=== PATIENT | female | born 1990 | race Caucasian/White ===

== ENCOUNTER → 2016-10-11 | Outpatient (CLI) | payer OTHER ==
[~2016-10-11] MED LIST: ANUS2.5C2 TOP; COLA100C PO; MILKSUS PO; MOTR200T44 PO; TYLE167L PO
[2016-10-11 14:58] LABS: BASO # 0.2 K/mm3 (0.0-0.2); BASO % 1.8 % (0.0-1.0); EOS # 0.1 K/mm3 (0.0-0.50); EOS % 0.6 % (0.0-3.0); LARGE UNSTAINED CELL # 0.1 K/mm3 (0.0-0.4); LARGE UNSTAINED CELL % 1.1 % (0.0-4.0); LYMPH # 2.2 K/mm3 (1.5-6.5); LYMPH % 19.7 % (24.0-44.0); MEAN CORPUSCULAR HEMOGLOBIN 29.4 pg (27.0-33.0); MEAN CORPUSCULAR VOLUME 86.4 fl (80.0-96.0); MONO # 0.5 K/mm3 (0.0-0.8); MONO % 4.6 % (0.0-5.0); NEUTROPHILS # 7.5 K/mm3 (1.8-7.7); NEUTROPHILS % 72.2 % (36.0-66.0); PLATELET COUNT, AUTOMATED 267 k/mm3 (150-450); RED CELL DISTRIBUTION WIDTH 13.1 % (11.5-14.5); WHITE BLOOD COUNT 10.4 K/mm3 (4.0-10.0)
[2016-10-11 16:59] LABS: HIV SCRN NEGATIVE (NEGATIVE); HIV SCRN1 NEGATIVE (NEGATIVE)
[2016-10-11 17:00] LABS: CONTROL LINE INT CTR LINE PRESENT
[2016-10-13 10:18] LABS: HBsAg Prenatal NEGATIVE (NEGATIVE)
== END ==
LOC: M LAB 12:38
PROVIDERS: ATTEND Advanced Practice Midwife
DX: Z34.81 Encounter for supervision of other normal pregnancy, first trimester (principal)

== ENCOUNTER → 2016-10-20 | Outpatient (REF) | payer OTHER | LOC: M LAB REF 17:08 | PROVIDERS: ATTEND Advanced Practice Midwife | DX: Z34.81 Encounter for supervision of other normal pregnancy, first trimester (principal); Z36 Encounter for antenatal screening of mother ==

== ENCOUNTER → 2016-11-17 | Outpatient (REF) | payer OTHER | LOC: M LAB REF 12:49 | PROVIDERS: ATTEND Advanced Practice Midwife | DX: Z34.82 Encounter for supervision of other normal pregnancy, second trimester (principal); Z36 Encounter for antenatal screening of mother ==

== ENCOUNTER → 2016-12-13 | Outpatient (CLI) | payer OTHER ==
--- NOTE | 2016-12-13 09:25 | REP ---
Clinical: Anatomical evaluation. Comparison: None . Findings: Examination demonstrates a single live intrauterine in cephalic presentation. motion is identified by technologist. Placenta is noted anterior and right lateral and grade zero without evidence for placenta previa or abruption. Amniotic fluid volume is normal. Cervix measures 4.1 cm in length and appears closed. No evidence for nuchal cord. Gestational age by LMP 19 weeks 4 days with REINALDO 05/05/2017 . Gestational age by current measurements 19 weeks 1 day with REINALDO 05/08/2017 . FHR equals 144 beats per minute. BPD 4.7 cm 20 weeks 2 days HC 16.6 cm 19 weeks 2 days AC 13.5 cm 19 weeks 0 days FL 3.2 cm 20 weeks 0 days HL 2.9 cm 19 weeks 3 days HC/AC ratio 1.23 Estimated weight 295 grams ( 42nd percentile). Anatomical assessment demonstrates normal structures including cranium, choroid plexus, cavum, cerebellum/posterior fossa, facial features, lungs, four-chamber heart/ventricular outflow tracts, diaphragm, stomach, cord insertion/three-vessel cord, kidneys/bladder, spine, and extremities. Impression: Single live intrauterine in cephalic presentation demonstrating appropriate interval growth. Anatomical assessment is complete and normal. Signed by Serge Zarco MD 12/13/2016 09:15 A
== END ==
LOC: M RAD 08:07
PROVIDERS: ATTEND Advanced Practice Midwife
DX: Z36 Encounter for antenatal screening of mother (principal); Z3A.19 19 weeks gestation of pregnancy

== ENCOUNTER → 2017-02-05 | Outpatient (CLI) | payer OTHER ==
[~2017-02-05] MED LIST changes: -COLA100C PO; +COLA100C3 PO
[2017-02-05 12:02] LABS: MEAN CORPUSCULAR HEMOGLOBIN 30.4 pg (27.0-33.0); MEAN CORPUSCULAR HGB CONC 34.5 g/dl (32.0-36.5); MEAN CORPUSCULAR VOLUME 88.3 fl (80.0-96.0); WHITE BLOOD COUNT 10.7 K/mm3 (4.0-10.0)
== END ==
LOC: M LAB 09:40
PROVIDERS: ATTEND Advanced Practice Midwife
DX: Z34.82 Encounter for supervision of other normal pregnancy, second trimester (principal); Z36 Encounter for antenatal screening of mother

== ENCOUNTER → 2017-04-25 | Outpatient (REF) | payer OTHER ==
[~2017-04-25] MED LIST changes: +ACET50TA PO; -COLA100C3 PO; +COLA100C5 PO; +IBUP-1114 PO; +PRENTAB9 PO
== END ==
LOC: M LAB REF 17:12
PROVIDERS: ATTEND Advanced Practice Midwife
DX: Z34.83 Encounter for supervision of other normal pregnancy, third trimester (principal); Z36 Encounter for antenatal screening of mother

== ENCOUNTER 2017-04-28 17:15 | Outpatient (CLI) | payer OTHER ==
[~2017-04-28] VITALS: Ht 162.6 cm; Wt 87.0 kg
[~2017-04-28 17:15] MED LIST changes: -ACET50TA PO; -IBUP-1114 PO; -PRENTAB9 PO
[2017-04-28] MEDS ORDERED: PRENTAB9 PO (17:25)
[2017-04-28 17:30] VITALS: BP 113/74
== END 2017-04-28 18:15 | disposition home or self-care (01) ==
LOC: M LDO 17:15
PROVIDERS: ATTEND Specialist
DX: O36.8130 Decreased fetal movements, third trimester, not applicable or unspecified (principal); Z3A.38 38 weeks gestation of pregnancy; O47.1 False labor at or after 37 completed weeks of gestation

== ENCOUNTER 2017-05-14 10:35 | Inpatient (IN) | payer OTHER ==
[~2017-05-14] VITALS: Ht 165.1 cm; Wt 85.0 kg
[2017-05-14] VITALS (23 sets, daily range): BP systolic 102–137; BP diastolic 57–89
[~2017-05-14 10:35] MED LIST changes: +PRENTAB9 PO
[2017-05-14] MEDS ORDERED: LR 1,000 ML IV SCH (10:59)
[2017-05-14] MEDS ORDERED: LACTATED RINGER'S 1000 ML IV STA (10:59)
[2017-05-14 11:47] LABS: MEAN CORPUSCULAR HEMOGLOBIN 28.1 pg (27.0-33.0); MEAN CORPUSCULAR HGB CONC 34.3 g/dl (32.0-36.5); MEAN CORPUSCULAR VOLUME 82.1 fl (80.0-96.0); RED CELL DISTRIBUTION WIDTH 13.5 % (11.5-14.5); WHITE BLOOD COUNT 10.4 K/mm3 (4.0-10.0)
[2017-05-14] MEDS ORDERED: FENTANYL 2MCG/ML ROPIVACAINE 0.2% IN 0.9% NACL 200ML IVBAG As Ordered ONE (12:24)
[2017-05-14] MEDS ORDERED: LACTATED RINGER'S 1000 ML IV PRN (13:00)
[2017-05-14] MEDS ORDERED: EPIDURAL/PCA KEYS XX PRN (13:00)
[2017-05-14] MEDS ORDERED: REFRIGERATOR IV KEYS XX PRN (13:00)
[2017-05-14] MEDS ORDERED: ONDANSETRON 4MG/2ML VIAL (J2405) IV PRN (13:00)
[2017-05-14] MEDS ORDERED: EPIDURAL COMMENT XX SCH (13:00)
[2017-05-14] MEDS ORDERED: ePHEDrine SULFATE 25 MG/5 ML(5MG/ML) SYRINGE IV PRN (13:00)
[2017-05-14] MEDS ORDERED: diphenhydrAMINE INJ 50MG/ML VIAL (J1200) IV PRN (13:00)
[2017-05-14] MEDS ORDERED: FENTANYL/ROPIVACAINE/NACL BAG 200 ML EPIDURAL SCH (13:00)
[2017-05-14] MEDS ORDERED: NALOXONE INJ 0.4 MG/1 ML VIAL (J2310) IV PRN (13:00)
[2017-05-14] MEDS ORDERED: OXYTOCIN 30 UNITS IN 0.9% NaCl 500ML IV BAG (J2590) As Ordered ONE (13:22)
[2017-05-14] MEDS ORDERED: OXYTOCIN DRIP 30 UNITS in APPROPRIATE DILUENT 1 EA IV ONE (16:00)
[2017-05-14] MEDS ORDERED: IBUPROFEN 800 MG TAB PO PRN (16:00)
[2017-05-14] MEDS ORDERED: RHOGAM 300 MCG (1500 IU) INJ (J2790) IM SCH (16:00)
[2017-05-14] MEDS ORDERED: DIBUCAINE 1% OINTMENT 30GM TOP PRN (16:00)
[2017-05-14] MEDS ORDERED: DOCUSATE SODIUM 100 MG CAP PO PRN (16:00)
[2017-05-14] MEDS ORDERED: METHYLERGONOVINE MALEATE 0.2 MG TAB PO PRN (16:00)
[2017-05-14] MEDS ORDERED: MEASLES,MUMPS,RUBELLA VACCINE INJ (MMR-II) (90707) SC SCH (16:00)
--- NOTE | 2017-05-14 17:00 | HPE ---
DATE OF ADMISSION: 05/14/2017 A 26-year-old G2, P1 female at 40-3/7 weeks gestation by last menstrual period (LMP) consistent with an 11-week ultrasound, estimated date of confinement (EDC) of 05/11/2017, presents with regular contractions every 3-4 minutes for the last several hours. She denies vaginal bleeding. Appears good movement. COURSE: Patient initiated care at 11 weeks gestation on 10/20/2016. Her first-trimester blood pressure is 124/74. She had no complications. OBSTETRICAL HISTORY: March 2014, 39-week vaginal delivery, 7-pound 8-ounce male with no complications. MEDICAL HISTORY: Noncontributory. SURGICAL HISTORY: None. ALLERGIES: None. SOCIAL HISTORY: The patient is . Patient denies cigarettes, alcohol, or drug use. FAMILY HISTORY: Noncontributory. PHYSICAL EXAMINATION: Blood pressure is 118/68, pulse 84. She appears uncomfortable. Head and neck exam is normal. Lungs clear. Heart regular rate and rhythm. Abdomen nontender, gravid. heart tone category 1. Sterile vaginal exam: 4 cm, 100% effaced, -2 station, bulbing membranes, vertex. Contractions every 2-3 minutes. Extremities: Nontender. LABORATORY DATA: Blood type is O positive, rubella equivocal, RPR nonreactive. Hepatitis B and C negative. GBS negative on 04/25/2017. ASSESSMENT: A 26-year-old G2, P1 female at 40-3/7 weeks gestation presents in active labor. Patient was admitted on 05/14/2017.
[2017-05-14] MEDS: ACETAMINOPHEN 500 MG TAB PO PRN (21:45)
[2017-05-15] MEDS: ACETAMINOPHEN 500 MG TAB PO PRN ×3 (05:17→19:56)
[2017-05-15 05:58] VITALS: BP 123/72
[2017-05-15] MEDS: PRENATAL VITAMINS CHEWABLE TABLET PO SCH (08:36)
[2017-05-15 18:00] VITALS: BP 111/59
[2017-05-16] MEDS: ACETAMINOPHEN 500 MG TAB PO PRN (03:23)
[2017-05-16 06:20] VITALS: BP 102/66
[2017-05-16] MEDS: PRENATAL VITAMINS CHEWABLE TABLET PO SCH (07:34)
[2017-05-16] MEDS ORDERED: ACET50TA PO (11:06)
[2017-05-16] MEDS ORDERED: IBUP-1114 PO (11:06)
--- NOTE | 2017-05-16 16:43 | DN ---
DATE OF DELIVERY: 05/14/2017 PREDELIVERY DIAGNOSIS: 40 weeks in labor. POSTDELIVERY DIAGNOSIS: Delivered. PROCEDURE: Spontaneous vaginal delivery. BESSEMER BOTTOM MAKER: Dr. Vic Mckeon ANESTHESIA: Epidural. ESTIMATED BLOOD LOSS: 300 mL. FINDINGS: 8 pound 1 ounce male . scores 8 and 9. DELIVERY SUMMARY: After a short second stage, the patient had spontaneous delivery of an 8 pound 1 ounce male infant, scores 8 and 9 under epidural anesthesia. Loose nuchal cord times one reduced manually. The shoulders delivered spontaneously with ease. The cried spontaneously and was handed to the mother. The cord was doubly clamped and cut. The placenta was delivered with manual extraction due to partial adherence. The placenta appeared to be intact. The patient received IV Pitocin for delivery of the placenta. A small first degree perineal laceration was repaired with 2-0 chromic in the usual fashion. Needle counts are correct. There were no sponges to count. DATE:
== END 2017-05-16 15:00 | disposition home or self-care (01) | DRG 541 ==
LOC: M LDI 10:35 → M OBS 18:30
PROVIDERS: ADMIT Specialist; ATTEND Specialist
PROC: 10E0XZZ Delivery of Products of Conception, External Approach (ICD-10-PCS; principal; 2017-05-14)
PROC: 10D17ZZ Extraction of Products of Conception, Retained, Via Natural or Artificial Opening (ICD-10-PCS; 2017-05-14)
PROC: 0HQ9XZZ Repair Perineum Skin, External Approach (ICD-10-PCS; 2017-05-14)
DX: O48.0 Post-term pregnancy (principal); O69.82X0 Labor and delivery complicated by other cord entanglement, without compression, not applicable or unspecified; Z37.0 Single live birth; Z3A.40 40 weeks gestation of pregnancy; O70.0 First degree perineal laceration during delivery; O73.0 Retained placenta without hemorrhage

== ENCOUNTER → 2020-09-04 | Outpatient (REF) | payer OTHER ==
[~2020-09-04] MED LIST changes: +IBUP-1114 PO; +MAPA500T2 PO; +MILK120011 PO; -MILKSUS PO
== END ==
LOC: M SFHCWAGY 17:11
PROVIDERS: ATTEND Advanced Practice Midwife
DX: Z12.4 Encounter for screening for malignant neoplasm of cervix (principal)
CPT/HCPCS: 87624; G0123

== ENCOUNTER 2021-04-23 14:35 | Emergency (ER) | payer OTHER ==
[~2021-04-23] VITALS: Ht 165.1 cm; Wt 99.6 kg
[2021-04-23 15:58] LABS: BASO % 0.4 % (0.0-1.0); EOS # 0.1 10^3/uL (0.0-0.5); EOS % 0.8 % (0.0-3.0); HEMATOCRIT 41.9 % (36.0-47.0); HEMOGLOBIN 14.2 g/dl (12.0-15.5); LYMPH # 2.4 10^3/uL (1.5-5.0); LYMPH % 22.9 % (24.0-44.0); MEAN CORPUSCULAR HEMOGLOBIN 30.7 pg (27.0-33.0); MEAN CORPUSCULAR HGB CONC 33.9 g/dl (32.0-36.5); MEAN CORPUSCULAR VOLUME 90.5 fl (80.0-96.0); MONO % 9.8 % (2.0-8.0); NEUTROPHILS % 65.3 % (36.0-66.0); PLATELET COUNT, AUTOMATED 257 10^3/uL (150-450); RED BLOOD COUNT 4.63 10^6/uL (4.00-5.40); WHITE BLOOD COUNT 10.6 10^3/uL (4.0-10.0)
[2021-04-23] MEDS ORDERED: ISOVUE-370 76% 100ML VIAL As Ordered ONE (16:06)
--- NOTE | 2021-04-23 16:25 | REP ---
INDICATION: wait for bun/cr/hcg -left sided chest pain. COMPARISON: None. TECHNIQUE: Contrast dose: 75 ML of Isovue [address] technique: Helical scanning is acquired and overlapping 1.5 mm and contiguous 3 mm axial images are reformatted. In addition, maximum intensity projection and multiplanar re-formation images are generated in sagittal and coronal imaging projections. FINDINGS: There is good opacification in the pulmonary arterial tree. There is no evidence of vessel cut off or filling defect to suggest pulmonary embolus. Homogeneous opacity is seen in the thoracic aorta. There is no evidence of aneurysm or dissection. There is no evidence of pleural or pericardial effusion. No hilar or mediastinal mass or adenopathy is seen. Lung window settings demonstrate clear well inflated lungs. No pulmonary nodule, mass, infiltrate, or atelectasis. In the upper abdomen, normal adrenal glands are seen. There is an accessory splenule in the left upper quadrant. The visualized upper abdominal structures are otherwise unremarkable. Bone window settings show no bony destructive lesion. IMPRESSION: No CT evidence of pulmonary embolus. No active disease. <Electronically signed by Luis Weldon > 04/23/21 [id number]
[2021-04-23 17:50] VITALS: BP 149/76
--- NOTE | 2021-04-24 04:27 | ECGEPIP ---
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
--- NOTE | 2021-04-24 08:33 | REP ---
INDICATION: wait for ed poc hcg. COMPARISON: None. FINDINGS: The superior mediastinal structures are midline. The cardiac silhouette is unremarkable in size, shape, and position. The diaphragmatic surfaces of the lungs are regular, and the costophrenic angles are clear. The pulmonary chou are clear. The imaged osseous structures are intact. IMPRESSION: There is no acute cardiopulmonary disease. <Electronically signed by Lex Mcdonough > 04/24/21 [id number]
== END 2021-04-23 17:51 | disposition home or self-care (01) ==
LOC: M ED 14:35
DX: R07.9 Chest pain, unspecified (principal); R53.83 Other fatigue; Z79.899 Other long term (current) drug therapy
CPT/HCPCS: 36415; 71046; 71275; 80047; 84484; 84702; 85025; 93005; 99284; Q9967

== ENCOUNTER → 2021-09-04 | Outpatient (CLI) | payer OTHER | LOC: M ADAMS 11:30 | PROVIDERS: ATTEND Family Medicine | DX: R07.89 Other chest pain (principal) ==

== ENCOUNTER → 2021-09-04 | Outpatient (REF) | payer OTHER ==
[2021-09-04 13:32] LABS: BASO # 0.1 10^3/uL (0.0-0.2); BASO % 0.6 % (0.0-1.0); EOS # 0.1 10^3/uL (0.0-0.5); EOS % 0.6 % (0.0-3.0); HEMATOCRIT 41.6 % (36.0-47.0); HEMOGLOBIN 13.7 g/dl (12.0-15.5); LYMPH # 2.6 10^3/uL (1.5-5.0); LYMPH % 26.9 % (24.0-44.0); MEAN CORPUSCULAR HGB CONC 32.9 g/dl (32.0-36.5); MONO # 0.8 10^3/uL (0.0-0.8); MONO % 8.3 % (2.0-8.0); NEUTROPHILS # 6.1 10^3/uL (1.5-8.5); NEUTROPHILS % 63.2 % (36.0-66.0); PLATELET COUNT, AUTOMATED 268 10^3/uL (150-450); RED BLOOD COUNT 4.57 10^6/uL (4.00-5.40); WHITE BLOOD COUNT 9.6 10^3/uL (4.0-10.0)
[2021-09-04 13:41] LABS: CK-MB VALUE MASS < 1.0 NG/ML (<3.6); CPK CREATINE PHOSPHOKINASE 105 U/L (26-192); MB/CK RELATIVE INDEX 0.95 (< OR =4)
== END ==
LOC: M SFHCADAM 11:28
PROVIDERS: ATTEND Family Medicine
DX: R07.89 Other chest pain (principal)

== ENCOUNTER → 2021-12-25 | Outpatient (REF) | payer OTHER ==
[2021-12-25 13:52] LABS: ALBUMIN 4.2 GM/DL (3.2-5.2); ALT/SGPT 30 U/L (12-78); BILIRUBIN,TOTAL 0.4 MG/DL (0.2-1.0); BLOOD UREA NITROGEN 20 MG/DL (7-18); CALCIUM LEVEL 9.5 MG/DL (8.5-10.1); CARBON DIOXIDE LEVEL 29 MEQ/L (21-32); CHLORIDE LEVEL 108 MEQ/L (98-107); CREATININE FOR GFR 0.74 MG/DL (0.55-1.30); GLOMERULAR FILTRATION RATE > 60.0 (>60); GLUCOSE, FASTING 88 MG/DL (70-100); POTASSIUM SERUM 5.1 MEQ/L (3.5-5.1); SODIUM LEVEL 140 MEQ/L (136-145); TOTAL PROTEIN 7.8 GM/DL (6.4-8.2)
== END ==
LOC: M SFHCADAM 12:50
PROVIDERS: ATTEND Family Medicine
DX: R07.89 Other chest pain (principal)

== ENCOUNTER → 2022-02-15 | Outpatient (REF) | payer OTHER | LOC: M LAB REF 09:16 | PROVIDERS: ATTEND Physician Assistant | DX: R19.7 Diarrhea, unspecified (principal) ==

== ENCOUNTER 2022-06-08 12:58 | Emergency (ER) | payer OTHER ==
[~2022-06-08] VITALS: Ht 165.1 cm; Wt 86.4 kg
[2022-06-08 12:59] VITALS: BP 127/78
[2022-06-08] MEDS ORDERED: CLIN150C17 PO (13:10)
[2022-06-08] MEDS ORDERED: CETI-24 PO (13:10)
[2022-06-08] MEDS ORDERED: predniSONE 20 MG TAB PO ONE (14:30)
[2022-06-08] MEDS ORDERED: PRED20TA PO (14:34)
[2022-06-08] MEDS ORDERED: HYDR1CRE30 TOP (14:34)
== END 2022-06-08 15:03 | disposition home or self-care (01) ==
LOC: M ED 12:58
DX: T63.441A Toxic effect of venom of bees, accidental (unintentional), initial encounter (principal); R22.41 Localized swelling, mass and lump, right lower limb
CPT/HCPCS: 86618; 99282; J7512

== ENCOUNTER → 2022-08-09 | Outpatient (CLI) | payer OTHER ==
[~2022-08-09] MED LIST changes: +CETI-24 PO; +CLIN150C17 PO; +HYDR1CRE30 TOP; +PRED20TA PO; +VITMTA PO
== END ==
LOC: M LABSMTC 11:14
PROVIDERS: ATTEND Anesthesiology
DX: Z01.812 Encounter for preprocedural laboratory examination (principal); Z11.52 Encounter for screening for COVID-19

== ENCOUNTER 2022-08-11 14:35 | Day surgery (SDC) | payer OTHER ==
[~2022-08-11] VITALS: Ht 165.1 cm; Wt 95.9 kg
[2022-08-11] MEDS ORDERED: LR 1,000 ML IV SCH ×2 (15:35→17:05)
[2022-08-11 15:47] LABS: HEMATOCRIT 42.2 % (36.0-47.0); HEMOGLOBIN 14.3 g/dl (12.0-15.5); MEAN CORPUSCULAR HEMOGLOBIN 30.2 pg (27.0-33.0); MEAN CORPUSCULAR HGB CONC 33.9 g/dl (32.0-36.5); PLATELET COUNT, AUTOMATED 251 10^3/uL (150-450); RED BLOOD COUNT 4.74 10^6/uL (4.00-5.40); WHITE BLOOD COUNT 9.9 10^3/uL (4.0-10.0)
[2022-08-11] MEDS ORDERED: BUPIVACAINE HCL 0.25% 30ML VIAL As Ordered ONE (15:59)
[2022-08-11] MEDS ORDERED: SUGAMMADEX SODIUM 500 MG/5 ML VIAL (BRIDION) As Ordered ONE (16:23)
[2022-08-11] MEDS ORDERED: MIDAZOLAM INJ 2MG/2ML VIAL (J2250 PER 1MG) As Ordered ONE (16:23)
[2022-08-11] MEDS ORDERED: KETOROLAC 60MG 2ML VIAL As Ordered ONE (16:23)
[2022-08-11] MEDS ORDERED: HYDROmorphone HCL 2MG/ML 1ML VIAL As Ordered ONE (16:23)
[2022-08-11] MEDS ORDERED: propofoL 200 MG/20 ML VIAL As Ordered ONE (16:23)
[2022-08-11] MEDS ORDERED: ONDANSETRON 4MG 2ML VIAL As Ordered ONE (16:23)
[2022-08-11] MEDS ORDERED: dexameTHASONE 4 MG/ML 1ML VIAL (J1100 PER 1MG) As Ordered ONE (16:23)
[2022-08-11] MEDS ORDERED: fentaNYL 100 MCG/2 ML INJECTION As Ordered ONE (16:23)
[2022-08-11] MEDS ORDERED: LIDOCAINE 2% 100MG/5ML SDV (FOR ANES.) As Ordered ONE (16:23)
[2022-08-11] MEDS ORDERED: ROCURONIUM BROMIDE 50 MG/5 ML VIAL As Ordered ONE (16:23)
[2022-08-11] MEDS ORDERED: GLYCOPYRROLATE INJ 0.2 MG/ML 2 ML VIAL As Ordered ONE (16:43)
[2022-08-11] MEDS ORDERED: IBUP80TA PO (16:57)
[2022-08-11] MEDS ORDERED: OXYC1TAB23 PO (16:59)
[2022-08-11] MEDS ORDERED: ONDANSETRON 4MG 2ML VIAL IV PRN (17:05)
[2022-08-11] MEDS ORDERED: fentaNYL 100 MCG/2 ML INJECTION IV PRN (17:05)
[2022-08-11] MEDS ORDERED: oxyCODONE 5MG TAB PO PRN (17:05)
[2022-08-11] MEDS ORDERED: METOCLOPRAMIDE INJ 10MG/2ML VIAL (J2765 PER 1) IV PRN (17:05)
[2022-08-11 18:40] VITALS: BP 120/78
== END 2022-08-11 17:56 | disposition home or self-care (01) ==
LOC: M SDC 14:35
PROVIDERS: ATTEND Obstetrics & Gynecology
DX: Z30.2 Encounter for sterilization (principal); K58.8 Other irritable bowel syndrome
CPT/HCPCS: 36415; 58661; 81025; 85027; 86850; 86900; 86901; 88302; J1100; J1170; J1885; J2250; J2405; J3010

== ENCOUNTER → 2023-12-21 | Outpatient (REF) | payer OTHER ==
[~2023-12-21] MED LIST changes: +IBUP80TA PO; +OXYC1TAB23 PO
[2023-12-21 13:45] LABS: HEMATOCRIT 43.2 % (36.0-47.0); HEMOGLOBIN 14.3 g/dl (12.0-15.5); MEAN CORPUSCULAR HEMOGLOBIN 29.6 pg (27.0-33.0); MEAN CORPUSCULAR HGB CONC 33.1 g/dl (32.0-36.5); MEAN CORPUSCULAR VOLUME 89.4 fl (80.0-96.0); PLATELET COUNT, AUTOMATED 290 10^3/uL (150-450); RED BLOOD COUNT 4.83 10^6/uL (4.00-5.40); WHITE BLOOD COUNT 10.5 10^3/uL (4.0-10.0)
[2023-12-21 13:54] LABS: FREE T4 1.14 NG/DL (0.89-1.76); THYROID STIMULATING HORMONE 1.532 uIU/ML (0.55-4.78)
[2023-12-21 14:00] LABS: ALBUMIN 4.2 G/DL (3.2-5.2); ALKALINE PHOSPHATASE 88 U/L (46-116); ALT/SGPT 27 U/L (7.0-40); AST/SGOT 15 U/L (<34); BILIRUBIN,TOTAL 0.5 MG/DL (0.3-1.2); BLOOD UREA NITROGEN 21 MG/DL (9-23); CALCIUM LEVEL 9.6 MG/DL (8.5-10.1); CARBON DIOXIDE LEVEL 24 MMOL/L (20-31); CHLORIDE LEVEL 107 MMOL/L (98-107); CHOLESTEROL LEVEL 167 MG/DL (<200); CHOLESTEROL RISK RATIO 3.47 (<5); CREATININE FOR GFR 0.68 MG/DL (0.55-1.30); GLOMERULAR FILTRATION RATE > 60.0 (>60); GLUCOSE, FASTING 89 MG/DL (60-100); LDL CHOLESTEROL 103.2 MG/DL (<100); POTASSIUM SERUM 4.3 MMOL/L (3.5-5.1); SODIUM LEVEL 139 MMOL/L (136-145); TOTAL PROTEIN 7.3 G/DL (5.7-8.2); TRIGLYCERIDES LEVEL 79 MG/DL (<150)
== END ==
LOC: M SFHCADAM 09:31
PROVIDERS: ATTEND Physician Assistant
DX: N94.3 Premenstrual tension syndrome (principal); E66.9 Obesity, unspecified; Z68.34 Body mass index [BMI] 34.0-34.9, adult; Z13.220 Encounter for screening for lipoid disorders; Z13.1 Encounter for screening for diabetes mellitus